=== PATIENT | female | born 1950 | race Caucasian/White ===

== ENCOUNTER 2025-03-28 13:34 | Outpatient (AMB) | payer MEDICARE, OTHER, SELFPAY ==
--- NOTE | 2025-03-28 14:24 | MHC.OFFVIS ---
Intake Visit Reasons: R/S 6m Allergies No Known Allergies Allergy (Verified 01/01/25 06:41) HPI Comments Details: 75 years old woman with dementia probably of dementia with Lewy body type. She is presenting with hallucinations. Vision-based hallucinations occur intermittently, described variably as non-threatening and occasionally intimidating. She also reports auditory hallucinations. These symptoms correlate with long-standing use of Quetiapine, administered primarily at night or additionally if symptoms manifest during the day. Parkinson's symptoms are managed with a prescribed regimen of carbidopa/levodopa (3 doses/day) and a nighttime dosage of carbidopa/levodopa extended-release. Concerns about overdose with this medication were allayed during the discussion. The discussion also included Alzheimer's Disease management with Memantine 5mg twice daily. The patient?s weight has decreased gradually over eighteen months, with no sudden recent weight loss noted. 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 - Psychological: Reports normal mood; denies current distress from hallucinations. - General: Reports gradual weight loss over the past year and a half. Physical Exam Neuro Other: Mental Status: Alert and oriented to person, place, and time. Normal attention. Normal spontaneous speech, fluency, and comprehension. Cranial Nerves: CN II: Visual loera full to confrontation, visual acuity intact. CN III, IV, : Pupils equal, round, reactive to light and accommodation. Extraocular movements are normal. CN V: Facial sensation is normal. CN VII: Facial movements symmetrical. CN VIII: Hearing intact to bedside conversation is normal. CN IX, X: Palate elevates symmetrically. CN XI: Shoulder shrug and head turn symmetrical. CN XII: Tongue midline without atrophy or fasciculations. Extrapyramidal: Full facial expressions and blinking. No rigidity. Movements are appropriate with no tremor or abnormality. Speech: Normal; no dysarthria or tremor. Assessment & Plan Assessment & Plan (1) Dementia with Lewy bodies: Comment: Routine EEG at off in Jun 2023: SlowMRI brain WO at [place] in 2019: mild atrophy and mild MVD. Code(s): G31.83 - Neurocognitive disorder with Lewy bodies; F02.80 - Dementia in other diseases classified elsewhere, unspecified severity, without behavioral disturbance, psychotic disturbance, mood disturbance, and anxiety Category: Medical Qualifiers: Dementia severity: moderate Dementia behavioral or psychological symptom: with other behavioral disturbance Qualified Code(s): G31.83 - Neurocognitive disorder with Lewy bodies; F02.B18 - Dementia in other diseases classified elsewhere, moderate, with other behavioral disturbance Plan Impression: Dementia, probably of Lewy body type, moderate with mild psychotic symptoms Rec: Carbidopa/levodopa 25/101 tablet 3 times a day Carbidopa/levodopa extended release 25/101 at bedtime Memantine 5 mg twice a day Quetiapine 25 mg 1 at bedtime or in afternoon. An additional 1 can be taken if needed. Medications: New quetiapine 25 mg PO BEDTIME 90 tabs 1RF Refilled carbidopa-levodopa 25-100 mg 1 tab PO TID 270 tabs 1RF carbidopa-levodopa 25-100 mg ER 1 tab PO BEDTIME 90 tabs 1RF memantine 5 mg PO BID 180 tabs 1RF Coding Level of Care Code Est Pt Level 4 (35673) Diagnoses Moderate Lewy body dementia with other behavioral disturbance G31.83; F02.B18 Dementia severity: moderate Dementia behavioral or psychological symptom: with other behavioral disturbance
--- OUTSIDE RECORDS SUMMARY | 2025-03-28 17:15 | XMS_ITS | Encounter Summary ---
Author Organization [facility] Address [address] [place] [address] Care Team Providers Care Quality And Reliability Engineer Name Role Phone Balbir Hernandez MD Primary Care Provider [phone] Encounter Details Date Type Department Care Team Description 02/02/2022 Business Doc Medical Records [address] [place] [id number] Abstract, Provider Social History Tobacco Use Types Packs/Day Years Used Date Smoking Tobacco: Former Cigarettes 0.5 15 Q uit: 06/06/1986 Smokeless Tobacco: Never Comments:quit 1986 Alcohol Use Standard Drinks/Week Comments Yes 0 (1 standard drink = 0.6 oz pur e alcohol) 6 drinks per wk Sex Assigned at Date Recorded Not on file Job Start Date Occupation Industry Not on file Not on file Not on file COVID-19 Exposure Response Date Recorded In the last 10 days, have yo u been in contact with someone who was confirmed or suspected to have Coronavirus/COVID-19? No / Unsure 01/29/2022 2:47 PM EDT documented as of this encounter Plan of Treatment Not on file documented as of this encounter Visit Diagnoses Not on filedocumented in this encounter Care Teams Quality And Reliability Engineer Relationship Specialty Start Date End Date Balbir Hernandez MD [address] [place] [address] PCP - General 10/07/06 documented as of this encounter
--- OUTSIDE RECORDS SUMMARY | 2025-03-28 17:15 | XMS_ITS | Encounter Summary ---
Author Organization [facility] [facility] Address [address] [place] [address] Care Team Providers Care Junior Underwriter Name Role Phone Balbir Hernandez MD Primary Care Provider [phone] Encounter Details Date Type Department Care Team Description 08/11/2023 Orders Only Medical Records [address] [place] [address] Kristin Mcintyre MD Social History Tobacco Use Types Packs/Day Years Used Date Smoking Tobacco: Former Cigarettes 0.5 15 Q uit: 06/06/1986 Smokeless Tobacco: Never Comments:quit 1986 Alcohol Use Standard Drinks/Week Comments Yes 0 (1 standard drink = 0.6 oz pur e alcohol) rarely Sex Assigned at Date Recorded Not on file Job Start Date Occupation Industry Not on file Not on file Not on file documented as of this encounter Plan of Treatment Not on file documented as of this encounter Procedures Procedure Name Priority Date/Time Associated Diagnosis Comments OUTSIDE PLAIN FILM Routine 07/13/2023 OUTSIDE LAB Routine 07/13/2023 documented in this encounter Results * OUTSIDE PLAIN FILM (07/13/2023) Kristin Mcintyre MD RADIOLOGY * OUTSIDE LAB (07/13/2023) [facility] documented in this encounter Visit Diagnoses Not on filedocumented in this encounter Care Teams Junior Underwriter Relationship Specialty Start Date End Date Balbir Hernandez MD [address] [place] [address] PCP - General 10/07/06 documented as of this encounter
--- OUTSIDE RECORDS SUMMARY | 2025-03-28 17:15 | XMS_ITS | Clinical Summary ---
Author Organization [facility] Address [address] [place] [address] Care Team Providers Care Lens Cleaner Name Role Phone Pcp, No Primary Care Provider [phone] Social History Tobacco Use Types Packs/Day Years Used Date Smoking Tobacco: Never Assessed Comments Unknown Sex and Gender Information Value Date Recorded Sex Assigned at Not on file Legal Sex Female 1:29 PM EDT Gender Identity Not on file Sexual Orientation Not on file Plan of Treatment Health Maintenance Due Date Last Done Comments Colorectal Cancer: COLONOSCO PY Screening every 10 yrs (or Modifier) 1950 Depression: Screening Annual ly using PHQ-2/9 in Adults 18 yrs or above (or HM Modifier)([facility]) 1969 Hepatitis C Virus Infection in Adolescents and Adults: Screening (or Modifier) ([facility]) 1969 SDIN Screening Reminder: Virgen kitchen for all adults ([facility]) 1969 Tobacco Smoking Cessation: i n Adults excluding Women: Behavioral and Pharmacotherapy Interventions ([facility]) 1969 Colorectal Cancer Screening 45 -75 Yrs (or HM Modifier) 02/23/1996 Colorectal Cancer: FLEXIBLE SIGMOIDOSCOPY Screening every 5 yrs 02/23/1996 Colorectal Cancer: Fecal Immunochemical Test (FIT) Annually [facility] 02/23/1996 Colorectal Cancer: High-sens itivity gFOBT Screening Annually [facility] 02/23/1996 Colorectal Cancer: Stool Col oguard Screening every 3 yrs 02/23/1996 Colorectal Cancer:CT Colonog theodora Screening every 5 yrs 02/23/1996 Breast Cancer: Screening Virgen fidelina age 50-74 yrs (or HM Modifier)([facility]) 2001 Zoster/Shingles Vaccine Seri es Screening: Adults aged 18+ yrs (or HM Modifiers)([facility]) (1 of 2) 2001 Osteoporosis Screening to Pr event Fractures: Women aged 65 years+ ([facility]) 02/23/2016 Pneumococcal Vaccination Scr eening: Patients 50+ yrs of age ([facility]) (2 of 2 - PCV) 10/28/2017 10/28/2016 DTaP/Tdap/Td Vaccines ([facility]) (2 - Td or Tdap) 07/28/2022 07/28/2012 Flu Vaccination: Ages 65+: Y early High Dose Recommended (or Modifier)([facility]) 01/04/2025 06/21/2018 COVID-19 Vaccine Screening: Initial Series and Booster Status ([facility]) ( season) 2025 06/22/2021, 09/19/2020, 08/22/2020 RSV Vaccines (1 - 1-dose 75+ series) 2026 Medical Devices Not on file Care Teams Lens Cleaner Relationship Specialty Start Date End Date Pcp, No PCP - General Family Medicine 03/11/23
--- OUTSIDE RECORDS SUMMARY | 2025-03-28 17:15 | XMS_ITS ---
Author Name [facility] Organization Unknown Care Team Organization Name Specialty Phone Email Start Date End Da [facility] 01/23/2025 [facility]se [facility] 02/10/2023
--- OUTSIDE RECORDS SUMMARY | 2025-03-28 17:15 | XMS_ITS | Clinical Summary ---
Author Organization [facility] Address [address] [place] [address] Care Team Providers Care Residential Energy Auditor Name Role Phone Balbir Hernandez MD Primary Care Provider [phone] Allergies Active Allergy Reactions Severity Noted Date Comments Seasonal Allergies 11/03/2010 Medications Medication Sig Dispensed Refills Start Date End Date Status ALBUTEROL SULFATE 108 (90 Base) MCG/ACT Aero Soln Inhale 2 Puffs into the lungs every 4 hours as needed for Wheezing or Shortness of Breath (EMERGENCY USE ONLY). 8.5 g 0 08/25/2022 Active carbidopa-levodopa (SINEMET) 25-100 MG per tablet Take 1 Tablet by mouth 4 times daily. 0 Active alendronate (FOSAMAX) 70 MG tablet Take 1 Tablet by mouth every 7 days. 12 Tablet 1 09/02/2022 Active quetiapine (SEROQUEL) 25 MG tablet Take 1 Tablet by mouth daily. 0 Active Active Problems Problem Noted Date Parkinson's disease 09/02/2022 COVID-19 06/24/2020 Vitamin D deficiency 11/21/2018 Osteoporosis 05/03/2017 Allergic rhinitis 07/25/2016 Asthma 06/24/2011 Resolved Problems Problem Noted Date Resolved Date Encounter for screening colonoscopy 08/18/2022 Immunizations Name Administration Dates Next Due COVID-19 (Moderna) 06/22/2021,09/19/2020, 021 Influenza Vaccine-preservati ve Free-quadrivalent 4 Years 06/21/2018 Influenza Vaccine-quadrivalent 4 Years Plus 04/07 Influenza vaccine high dose age 65 and over 06/06 Pneumoccoccal(Adult) Polysaccharide PPSV23 10/28 Pneumococcal Conjugate PCV-13 06/21/2018 TD (STATE SUPPLIED FOR ADULTS AND CHILDREN) 08/06 Tdap 07/28/2012 Family History Medical History Relation Name Comments Dementia Father CA Breast Other m aunt hyperthyroid Sister Relation Name Status Comments Father Other m aunt Sister Social History Tobacco Use Types Packs/Day Years Used Date Smoking Tobacco: Former Cigarettes 0.5 15 Q uit: 06/06/1986 Smokeless Tobacco: Never Tobacco Cessation:Counseling Given: Not Answered Comments:quit 1986 Alcohol Use Standard Drinks/Week Comments Yes 0 (1 standard drink = 0.6 oz pur e alcohol) rarely Sex Assigned at Date Recorded Not on file Job Start Date Occupation Industry Not on file Not on file Not on file Last Filed Vital Signs Vital Sign Reading Time Taken Comments Blood Pressure 118/60 12/09/2023 10:46 AM EDT Pulse 72 12/09/2023 10:46 AM EDT Temperature 36.5 C (97.7 F) 12/09/2023 10:46 AM EDT Respiratory Rate 12 12/09/2023 10:46 AM EDT Oxygen Saturation 99% 02/16/2022 1:55 PM EDT Inhaled Oxygen Concentration - - Weight 50 kg (110 lb 3.2 oz) 12/09/2023 10:46 AM EDT Height 160 cm (5' 3 ) 12/09/2023 10:46 AM EDT Body Mass Index 19.52 12/09/2023 10:46 AM EDT Plan of Treatment Health Maintenance Due Date Last Done Comments SHINGLES VACCINE (1 of 2) 2001 COLON CANCER SCREENING 09/27/2021 09/28/2011, 2011 FALL RISK ASSESSMENT 09/03/2023 09/02/2022, 08/31/2021, 07/26/2019, Additional history exists BONE DENSITY SCREENING 06/24/2024 , 01/02/2019, 11/22/2016, Additional history exists DEPRESSION SCREEN 12/08/2024 12/09/2023, , 08/31/2021, Additional history exists MAMMOGRAM 01/26/2025 01/27/2024, 01/04, 01/29/2022, Additional history exists Covid-19 Vaccine (4 - 2022-2 4 season) 2025 06/22/2021, 09/19/2020, 08/22/2020 INFLUENZA (#1) 2025 06/22/2021, 06/06, 05/03/2017 CHOLESTEROL SCREENING 12/08/2028 12/09/2023 , 09/07/2021, 11/20/2018, Additional history exists DTAP/TDAP/TD (3 - Td or Tdap) 09/02/2032 09/02/2022, 07/28/2012 HEPATITIS C SCREENING Completed 10/28/2016 PNEUMOCOCCAL VACCINE Completed 06/21/2018, 10/29/19 Care Teams Residential Energy Auditor Relationship Specialty Start Date End Date Balbir Hernandez MD [address] [place] [address] PCP - General 10/07/06
--- OUTSIDE RECORDS SUMMARY | 2025-03-28 17:15 | XMS_ITS | Encounter Summary ---
Author Organization [facility] Address [address] [place] [address] Care Team Providers Care Landscape Architecture Teacher Name Role Phone Balbir Hernandez MD Primary Care Provider [phone] Encounter Details Date Type Department Care Team Description 01/21/2023 Business Doc Medical Records [address] [place] [id number] Abstract, Provider Social History Tobacco Use Types [...] suspected to have Coronavirus/COVID-19? No / Unsure 01/19/2023 2:58 PM EDT documented as of this encounter Plan of Treatment Not on file documented as of this encounter Visit Diagnoses Not on filedocumented in this encounter Care Teams Landscape Architecture Teacher Relationship Specialty Start Date End Date Balbir Hernandez MD [address] [place] [address] PCP - General 10/07/06 documented as of this encounter
--- OUTSIDE RECORDS SUMMARY | 2025-03-28 17:15 | XMS_ITS | Encounter Summary ---
Author Organization [facility] Address [address] [place] [address] Care Team Providers Care Spiritual Counselor Name Role Phone Balbir Hernandez MD Primary Care Provider [phone] Encounter Details Date Type Department Care Team Description 07/13/2023 Hospital Medical Records [address] [place], [place] [id number] [place] [address] [address] [place], [place] [id number] Social History Tobacco Use Types Packs/Day Years [...] on filedocumented in this encounter Care Teams Spiritual Counselor Relationship Specialty Start Date End Date Balbir Hernandez MD [address] [place], [place] [phone] PCP - General 10/07/06 documented as of this encounter
--- OUTSIDE RECORDS SUMMARY | 2025-03-28 17:15 | XMS_ITS | Encounter Summary ---
Author Organization [facility] Address [address] [place] [address] Care Team Providers Care Stamping Operator Name Role Phone Balbir Hernandez MD Primary Care Provider [phone] Encounter Details Date Type Department Care Team Description 11/23/2016 Business Doc Medical Records [address] [place] [address] Abstract, Provider Social History Tobacco Use Types [...] on filedocumented in this encounter Care Teams Stamping Operator Relationship Specialty Start Date End Date Balbir Hernandez MD [address] [place] [address] [phone] PCP - General 10/07/06 documented as of this encounter
--- OUTSIDE RECORDS SUMMARY | 2025-03-28 17:15 | XMS_ITS | Encounter Summary ---
Author Organization [facility] Address [address] [place] [address] Care Team Providers Care Parts Sales Advisor Name Role Phone Balbir Hernandez MD Primary Care Provider [phone] Encounter Details Date Type Department Care Team Description 01/10/2019 Orders Only Adult Medicine [address] [phone] Magdalene Larios PA Social History Tobacco Use Types Packs/Day Years [...] on filedocumented in this encounter Care Teams Parts Sales Advisor Relationship Specialty Start Date End Date Balbir Hernandez MD [address] [place] [address] PCP - General 10/07/06 documented as of this encounter
--- OUTSIDE RECORDS SUMMARY | 2025-03-28 17:15 | XMS_ITS | Encounter Summary ---
Author Organization [facility] Address [address] [place] [address] Care Team Providers Care Fertilizer Loader Name Role Phone Balbir Hernandez MD Primary Care Provider [phone] Encounter Details Date Type Department Care Team Description 03/23/2017 Wellness Visit Medical Records [address] [place] [address] Balbir Hernandez MD [address] [place] [address] Social History Tobacco Use Types Packs/Day Years [...] on filedocumented in this encounter Care Teams Fertilizer Loader Relationship Specialty Start Date End Date Balbir Hernandez MD [address] [place] [address] PCP - General 10/07/06 documented as of this encounter
--- OUTSIDE RECORDS SUMMARY | 2025-03-28 17:15 | XMS_ITS | Encounter Summary ---
Author Organization [facility] Address [address] [place] [address] Care Team Providers Care Diesel Mechanic Apprentice Name Role Phone Balbir Hernandez MD Primary Care Provider [phone] Encounter Details Date Type Department Care Team Description 11/02/2016 Business Doc Medical Records [address] [place] [address] Abstract, Provider Social History Tobacco Use Types [...] on filedocumented in this encounter Care Teams Diesel Mechanic Apprentice Relationship Specialty Start Date End Date Balbir Hernandez MD [address] [place] [address] [phone] PCP - General 10/07/06 documented as of this encounter
--- OUTSIDE RECORDS SUMMARY | 2025-03-28 17:15 | XMS_ITS | Encounter Summary ---
Author Organization [facility] Address [address] [place] [address] Care Team Providers Care Diamond Powder Mixer Name Role Phone Balbir Hernandez MD Primary Care Provider [phone] Encounter Details Date Type Department Care Team Description 06/21/2022 Orders Only Radiology - [address] [address] Radiology, Authorizing Social History Tobacco Use Types Packs/Day Years [...] suspected to have Coronavirus/COVID-19? No / Unsure 06/24/2022 2:44 PM EST documented as of this encounter Plan of Treatment Not on file documented as of this encounter Visit Diagnoses Not on filedocumented in this encounter Care Teams Diamond Powder Mixer Relationship Specialty Start Date End Date Balbir Hernandez MD [address] [place] [address] PCP - General 10/07/06 documented as of this encounter
--- OUTSIDE RECORDS SUMMARY | 2025-03-28 17:15 | XMS_ITS | Encounter Summary ---
Author Organization [facility] Address [address] [place] [address] Care Team Providers Care Pin Setter Name Role Phone Balbir Hernandez MD Primary Care Provider [phone] Encounter Details Date Type Department Care Team Description 12/01/2017 Business Doc Medical Records [address] [place] [address] Abstract, Provider Social History Tobacco Use Types [...] on filedocumented in this encounter Care Teams Pin Setter Relationship Specialty Start Date End Date Balbir Hernandez MD [address] [place] [address] [phone] PCP - General 10/07/06 documented as of this encounter
--- OUTSIDE RECORDS SUMMARY | 2025-03-28 17:15 | XMS_ITS | Encounter Summary ---
Author Organization [facility] Address [address] [place] [address] Care Team Providers Care Audit Clerk Name Role Phone Balbir Hernandez MD Primary Care Provider [phone] Encounter Details Date Type Department Care Team Description 11/03/2021 Ship'S Officer Report Medical Records [address] [place] [address] Yessica Og MD Social History Tobacco Use Types Packs/Day [...] suspected to have Coronavirus/COVID-19? No / Unsure 11/03/2021 2:54 PM EDT documented as of this encounter Plan of Treatment Not on file documented as of this encounter Visit Diagnoses Not on filedocumented in this encounter Care Teams Audit Clerk Relationship Specialty Start Date End Date Balbir Hernandez MD [address] [place] [address] PCP - General 10/07/06 documented as of this encounter
--- OUTSIDE RECORDS SUMMARY | 2025-03-28 17:15 | XMS_ITS | Encounter Summary ---
Author Organization [facility] Address [address] [place] [address] Care Team Providers Care Rivet Hole Puncher Name Role Phone Balbir Hernandez MD Primary Care Provider [phone] Encounter Details Date Type Department Care Team Description 10/03/2017 Table Inspector Report Medical Records [address] [place] [address] Srikanth Bocanegra MD Social History Tobacco Use Types Packs/Day Years Used Date Smoking Tobacco: Former Cigarettes 0.5 15 Q uit: 06/06/1986 Smokeless Tobacco: Former Comments:quit 1986 Alcohol Use Standard Drinks/Week Comments [...] on filedocumented in this encounter Care Teams Rivet Hole Puncher Relationship Specialty Start Date End Date Balbir Hernandez MD [address] [place] [address] [phone] PCP - General 10/07/06 documented as of this encounter
--- OUTSIDE RECORDS SUMMARY | 2025-03-28 17:15 | XMS_ITS | Encounter Summary ---
Author Organization [facility] Address [address] [place] [address] Care Team Providers Care Media Buyer Name Role Phone Balbir Hernandez MD Primary Care Provider [phone] Reason for Visit * Reason Onset Date Comments Annual Wellness Outreach 10/28/2023 Encounter Details Date Type Department Care Team Description 10/28/2023 Telephone Adult Medicine [address] [phone] Balbir Hernandez MD [address] [place] [address] [phone] Annual Wellness Outreach Social History Tobacco Use Types Packs/Day Years [...] on filedocumented in this encounter Care Teams Media Buyer Relationship Specialty Start Date End Date Balbir Hernandez MD [address] [place] [address] PCP - General 10/07/06 documented as of this encounter
--- OUTSIDE RECORDS SUMMARY | 2025-03-28 17:15 | XMS_ITS | Encounter Summary ---
Author Organization [facility] Address [address] [place] [address] Care Team Providers Care Master Printer Name Role Phone Balbir Hernandez MD Primary Care Provider [phone] Encounter Details Date Type Department Care Team Description 01/04/2019 Business Doc Medical Records [address] [place] [address] Abstract, Provider Social History Tobacco Use Types [...] on filedocumented in this encounter Care Teams Master Printer Relationship Specialty Start Date End Date Balbir Hernandez MD [address] [place] [address] [phone] PCP - General 10/07/06 documented as of this encounter
--- OUTSIDE RECORDS SUMMARY | 2025-03-28 17:15 | XMS_ITS | Encounter Summary ---
Author Organization [facility] Address [address] [place] [address] Care Team Providers Care Courier Name Role Phone Balbir Hernandez MD Primary Care Provider [phone] Encounter Details Date Type Department Care Team Description 10/29/2016 Business Doc Medical Records [address] [place] [address] Abstract, Provider Social History Tobacco Use Types [...] on filedocumented in this encounter Care Teams Courier Relationship Specialty Start Date End Date Balbir Hernandez MD [address] [place] [address] [phone] PCP - General 10/07/06 documented as of this encounter
--- OUTSIDE RECORDS SUMMARY | 2025-03-28 17:15 | XMS_ITS | Clinical Summary ---
Author Organization [facility] [address] [place] [address] [place] [phone] Phone Care Team Providers Care Youth Court Judge Name Role Phone Balbir Hernandez MD Primary Care Provider [phone] Allergies Active Allergy Reactions Criticality Noted Date Comments Levonorgestrel-Ethinyl Estrad 2010 SEASONAL ALLERGIES Medications albuterol HFA (PROAIR HFA ; PROVENTIL HFA ; VENTOLIN HFA) 90 mcg/actuation inhaler Inhale 2 Puffs into the lungs every 4 hours as needed for Wheezing or Shortness of Breath (EMERGENCY USE ONLY). 3 Active alendronate (FOSAMAX) 70 mg tablet Take 1 Tablet by mouth every 7 days. 3 Active carbidopa-levod opa (SINEMET) 25-100 mg per tablet Take 1 Tablet by mouth 4 times daily. Active QUEtiapine (SEROquel) 25 mg tablet Active memantine (NAMENDA) 5 mg tablet Take 1 tablet (5 mg total) by mouth 2 (two) times a day. 4 Active cholecalciferol (VITAMIN D-3) 50 mcg (2,000 unit) tablet Take 1 tablet (2,000 Units total) by mouth 1 (one) time each day. 90 tablet 1 5 Active Active Problems Problem Noted Date Diagnosed Date A-fib (CMS/[facility] V24, CMS/[facility] V28) 10/23/2024 Parkinson's disease (CMS/[facility] V24, CMS/[facility] V28) 0 09/02/2022 COVID-19 06/24/2020 Vitamin D deficiency 11/21/2018 Osteoporosis 05/03/2017 Allergic rhinitis 07/25/2016 Asthma 06/24/2011 Encounters Date Type Department Care Team Description 01/31/2025 11:30 AM EDT Ancillary Procedure [facility] - [address] [place] [phone] New onset a-fib (CMS/HCC V24, CMS/HCC V28) 01/23/2025 3:00 PM EDT Office Visit Adult Medicine [address] [phone] Noe Webster PA Impacted cerumen of left ear (Primary Dx) 01/23/2025 Telephone Adult Medicine [address] [phone] Balbir Hernandez MD 01/23/2025 Telephone Adult Medicine [address] [phone] Balbir Hernandez MD from Last 3 Months Immunizations Immunization Administration Dates Next Due Influenza Quadravalent, MDCK , 0.5ml, preservative free (Flucelvax) 6mo and older 06/21/2018 Influenza Quadravalent, MDCK , 0.5ml, with preservative (Flucelvax) 6mo and older 05/03/2017 Influenza trivalent, 0.5mL (Fluad) 65yo and olde r 06/22/2021 Pneumococcal conjugate 13 va lent (Prevnar 13, PCV13) 2mo and older 06/21/2018 Pneumococcal polysaccharide 23 valent (Pneumovax 23) 2yo and older 10/28/2016 Td Tetanus diptheria (Tdvax) 7yo and older 09/02 Tdap Tetanus diptheria acell ular pertussis (Boostrix; Adacel) 7yo and older 07/28/2012 Surgical History Surgery Date Site/Laterality Comments SECTION PROCEDURE: HISTORICAL DELIVERY COLONOSCOPY 09/28/2011 PROCEDURE: [place] COLONOSCOPY FLX DX W/COLLJ SPEC WHEN PFRMD; COMMENT: normal COLONOSCOPY PROCEDURE: HISTORICAL COLONOSCOPY COLONOSCOPY PROCEDURE: HISTORICAL COLONOSCOPY; COMMENT: Performed in September 2011 Medical History Medical History Date Comments Asthma 06/24/2011 DX:Asthma Osteoporosis DX:Osteoporosis Family History Medical History Relation Name Comments Dementia Father Breast cancer Other m aunt Other: hyperthyroid Sister Relation Name Status Comments Father Other m aunt Sister Social History Tobacco Use Types Packs/Day Years Used Date Smoking Tobacco: Former Cigarettes Q uit: 06/06/1986 Smokeless Tobacco: Never Tobacco Cessation:Counseling Given: Not Answered Alcohol Use Standard Drinks/Week Comments Yes 0 (1 standard drink = 0.6 oz pur e alcohol) Comments Unknown Sex and Gender Information Value Date Recorded Sex Assigned at Not on file Legal Sex Female 3:18 AM EST Gender Identity Not on file Sexual Orientation Not on file Obstetrics History Last Filed Vital Signs Vital Sign Reading Time Taken Comments Blood Pressure 144/76 01/31/2025 1:40 PM EDT Pulse 64 01/23/2025 2:48 PM EDT Temperature 36.3 C (97.4 F) 09/13/2024 3:52 PM EDT Respiratory Rate 12 01/23/2025 2:48 PM EDT Oxygen Saturation 98% 10/25/2024 11:23 AM EDT Inhaled Oxygen Concentration - - Weight 42.6 kg (94 lb) 01/31/2025 1:40 PM EDT Height 160 cm (5' 3 ) 01/31/2025 1:40 PM EDT Body Mass Index 16.65 01/31/2025 1:40 PM EDT Plan of Treatment Upcoming Encounters Date Type Department Care Team (Late st Contact Info) Description 05/22/2025 10:40 AM EST Office Visit [facility] [address] [place] [phone] Magdalene Mao NP [address] [place] [address] Health Maintenance Due Date Last Done Comments RSV Immunization Adult Patients (1 - Risk 50-74 years 1-dose series) 2001 Colorectal Cancer Screening: Colonoscopy 09/27/2021 09/28/2011 Falls Risk Assessment 05/15/2022 Medicare Annual Wellness Visit 05/15/2022 Social Influencers of Health Screening 05/15/2022 Depression Screening 06/06/2024 12/09/2023 COVID-19 Vaccine ( season) 2025 06/22/2021, 09/19/2020, 08/22/2020 Influenza Vaccine (#1) 2025 2, 06/21/2018, 05/03/2017 Breast Cancer Screening 01/26/2026 01/27/20 24, 01/27/2024, 01/19/2023, Additional history exists Cholesterol Screening (Lipid Panel) 12/08/2028 12/09/2023, 12/09/2023 DTaP,Tdap,and Td Vaccines (3 - Td or Tdap) 09/02/2032 09/02/2022, 07/28/2012 Osteoporosis Screening (Bone Density Screening) 06/29/2034 06/29/2024, 06/24/2022, 01/02/2019, Additional history exists Hepatitis C Screening Completed 10/28/2016 Pneumococcal Vaccine: 50+ Years Completed 06/21/2018, 10/28/2016 Zoster Vaccines Completed 03/11/2023, 12/09/2022 HIB Vaccines Aged Out No longer eligi ble based on patient's age to complete this topic HPV Vaccines Aged Out No longer eligi ble based on patient's age to complete this topic Hepatitis A Vaccines Aged Out No long er eligible based on patient's age to complete this topic Hepatitis B Vaccines Aged Out No long er eligible based on patient's age to complete this topic IPV Vaccines Aged Out No longer eligi ble based on patient's age to complete this topic MMR Vaccines Aged Out No longer eligi ble based on patient's age to complete this topic Meningococcal ACWY Vaccine Aged Out N o longer eligible based on patient's age to complete this topic Meningococcal B Vaccine Aged Out No l onger eligible based on patient's age to complete this topic RSV Immunization Patients Under 20 months Aged Out No longer eligible based on patient's age to complete this topic Varicella Vaccines Aged Out No longer eligible based on patient's age to complete this topic Procedures Procedure Name Priority Date/Time Associated Diagnosis Comments TRANSTHORACIC ECHOCARDIOGRAM (TTE) COMPLETE Routine 01/31/2025 12:10 PM EDT New onset a-fib ([facility] V24, [facility] V28) BD BONE DENSITY DXA AXIAL SKELETON Routine 06/29/2024 1:42 PM EST Osteoporosis, unspecified osteoporosis type, unspecified pathological fracture presence SCREENING MAMMOGRAPHY BI 2-VIEW BREAST INC CAD Routine 01/27/2024 2:20 PM EDT Encounter for screening mammogram for malignant neoplasm of breast HM DEPRESSION SCREENING Routine 12/09/2023 LIPID PANEL Routine 12/09/2023 HM HEPATITIS C SCREENING Routine 10/28/2016 HM COLONOSCOPY Routine 09/28/2011 from Last 3 Months or Most Recently Relevant to Health Maintenance Results * (ABNORMAL) TRANSTHORACIC ECHOCARDIOGRAM (TTE) COMPLETE (01/31/2025 12:10 PM EDT) Left Atrium Minor [place] 4.2 cm CV PACS Left Atrium Major [place] 4.1 cm CV PACS LA Area Sys (A2C) 9 cm2 CV PACS LA Area Sys (A4C) 12 cm2 CV PACS LA Volume (BP) 21 mL CV PACS LA Size 3.4 cm CV PACS RA Area 8.6 cm2 CV PACS RA 2D Volume 16 mL CV PACS AV Regurgitation PHT 865 ms CV PACS AR Max Velocity 2.5 m/s CV PACS AV Regurgitant Volume 26 mmHg CV PACS AV Peak Lan 1.2 m/s CV PACS AV Peak Gradient 5 mmHg CV PACS AV Mean Gradient 2 mmHg CV PACS AV Mean Gradient 2 mmHg CV PACS Ao VTI 24.5 cm CV PACS AV Area Continuity Equation 1.7 cm2 CV PACS AV Area Peak Velocity 2.0 cm2 CV PACS Aortic Arch 2.4 cm CV PACS Ascending Aorta 2.8 cm CV PACS Aortic Sinus Valsalva 3.5 cm CV PACS IVC Proximal 1.6 cm CV PACS IVSD 0.9 0.6 - 0.9 cm CV PACS LVIDD 3.9 3.8 - 5.2 cm CV PACS LVIDS 2.6 2.2 - 3.5 cm CV PACS LVOT Diameter 1.8 cm CV PACS LVOT Mean Lan 0.5 m/s CV PACS LVOT Mean Grad 1 mmHg CV PACS LVOT Mean Grad 1 mmHg CV PACS LVOT Peak VTI 16.5 cm CV PACS LVOT Peak Lan 0.9 m/s CV PACS LVOT Peak Gradient 3 mmHg CV PACS LVPWD 0.9 0.6 - 0.9 cm CV PACS MV E' Tissue Velocity Lateral 9 cm/s CV PACS MV E' Tissue Velocity Septal 8 cm/s CV PACS LVOT Area 2.5 cm2 CV PACS LVOT Stroke Volume 42 mL CV PACS MV Deceleration Mason 3.8 m/s2 CV PACS E Wave Deceleration Time 227 119 - 242 ms CV PACS MV PHT 69 ms CV PACS MV Peak A Lan 1.02 m/s CV PACS MV Peak E Lan 0.85 m/s CV PACS MV Mean Gradient 2 mmHg CV PACS MV Mean Gradient 2 mmHg CV PACS MV VTI 34.9 cm CV PACS Mitral Valve Max Velocity 1.1 m/s CV PACS MV Peak Gradient 5 mmHg CV PACS MV Area PHT 3.2 cm2 CV PACS MV Area Continuity Equation 1.2 cm2 CV PACS PV Acceleration Time 148 ms CV PACS PV Acceleration Time 165 ms CV PACS PV Acceleration Time 157 ms CV PACS PV Mean Gradient 2 mmHg CV PACS PV VTI 18.6 cm CV PACS PV Peak Velocity 1.0 m/s CV PACS PV Peak Gradient 4 mmHg CV PACS RV Diastolic Basal Dimension 3.0 2.5 - 4.1 cm CV PACS RV S' 12 cm/s CV PACS TAPSE 18 mm CV PACS TR Peak Velocity 2.31 m/s CV PACS TR Peak Velocity 2.31 m/s CV PACS TR Peak Gradient 21 mmHg CV PACS E/E' Ratio Septal 11 CV PACS E/E' Ratio Averaged 10 CV PACS Relative Wall Thickness ratio 0.46 CV PACS LVOT:AV VTI Index 0.67 CV PACS FS 33 % CV PACS LV Mass 2D 105 g CV PACS MV VTI:LVOT VTI ratio 2.1 CV PACS LVOT flow 127 mL/s CV PACS AV Velocity Ratio 0.75 CV PACS E/A Ratio 0.8 CV PACS E/E' Ratio Lateral 9 CV PACS BSA 1.38 m2 CV PACS LA Volume Index (BP) 15 mL/m2 CV PACS LVIDD Index 2.79 cm/m2 CV PACS LVIDS Index 1.86 cm/m2 CV PACS LV Mass Index 2D 75 44 - 88 g/m2 CV PACS LVOT Stroke Index 30 mL/m2 CV PACS LA Dimension Index 2D 2.4 cm/m2 CV PACS RA 2D Volume Index 11(A) 15 - 27 mL/m2 CV PACS YORDY Index (VTI) 1.22 cm2/m2 CV PACS YORDY Index (Pk Lan) 1.43 cm2/m2 CV PACS Ascending Aorta Index 2.00 cm/m2 CV PACS Est. RA Pressure 3 mmHg CV PACS Anatomical Region Laterality Modality Ultrasound Narrative 02/07/2025 4:43 PM EDT Left ventricle cavity size is normal. Left ventricular systolic function is in the normal range with an ejection fraction of 60-65%. No regional LV wall motion abnormalities noted. Left ventricle wall thickness is normal. Right ventricle cavity is normal. Right ventricular systolic function is normal. No hemodynamically valve disease. Left Ventricle Left ventricle cavity size is normal. Wall thickness is normal. Systolic function is normal with an ejection fraction of 60-65%. There are no regional LV wall motion abnormalities. Indeterminate diastolic function. Right Ventricle Right ventricle cavity appears normal. Systolic function is normal. Left Atrium Left atrium cavity size is normal. Right Atrium Right atrium cavity is normal. IVC/SVC Inferior vena cava structure is normal. RA pressures is estimated to be 3 mmHg (IVC diameter <21 mm and decreases >50% during inspiration). Mitral Valve The leaflets are mildly thickened. There is mild annular calcification. There is trace regurgitation. There is no evidence of mitral valve stenosis. Tricuspid Valve Tricuspid valve structure is normal. There is no significant regurgitation. The right ventricular systolic pressure is normal. Aortic Valve The aortic valve is trileaflet. The leaflets are mildly thickened. There is trace regurgitation with a centrally directed jet. There is no evidence of aortic valve stenosis. Pulmonic Valve There is mild pulmonic valve regurgitation. There is no evidence of pulmonic valve stenosis. Ascending Aorta The aorta appears normal in size. Pericardium Pericardium appears normal. There is no pericardial effusion. Study Details Overall the study quality was adequate. us Raj Crystal MD CV ECHO PROCEDURES Final Result * BD Bone Density DXA Axial Skeleton (06/29/2024 1:42 PM EST) Anatomical Region Laterality Modality Wrist, Hip, L-spine Bone Densito metry 06/30/2024 11:3 6 AM EST Impressions 06/30/2024 11:37 AM EST Osteoporosis. Telerad JAZMIN ([id number]) -------- FINAL REPORT -------- Dictated By: Gisel Cassidy Dictated Date: 06/30/2024 11:36 ET Assigned Physician: Gisel Cassidy Reviewed and Electronically Signed By: Gisel Cassidy Signed Date: 06/30/2024 11:37 ET Workstation ID: [id number] Transcribed By: Self Edit Transcribed Date: 06/30/2024 11:36 ET Narrative 06/30/2024 11:37 AM EST History: Low estrogen state due to menopause. Parent hip fracture. On alendronate. Prior smoker. Comparison: No comparison imaging at this institution. Findings: Bone densitometry is performed utilizing dual energy x-ray absorptiometry (DXA) in the [employer] ProdigDataslide unit. The lumbar spine and proximal femora are evaluated in the AP projection. The FRAX questionaire was completed. The results indicate osteoporosis, with a lumbar spine T-score of -3.1. The Z score is -0.8, indicating bone mineral density within the range of normal for age. The detailed DEXA report will be mailed to the referring physician's office. DualFemur FRAX: 10-year Probability of Fracture: Major Osteoporotic 30.1 percent Hip 19.6 percent. Procedure Note Gisel Cassidy MD - 06/30/2024 History: Low estrogen state due to menopause. Parent hip fracture. Onalendronate. Prior smoker. Comparison: No comparison imaging at this institution. Findings: Bone densitometry is performed utilizing dual energy x-ray absorptiometry(DXA) in the [employer]lide unit. The lumbar spine and proximal femora areevaluated in the AP projection. The FRAX questionaire was completed. The results indicate osteoporosis, with a lumbar spine T-score of -3.1.The Z score is -0.8, indicating bone mineral density within the range ofnormal for age. The detailed DEXA report will be mailed to the referringphysician's office. DualFemur FRAX: 10-year Probability of Fracture: Major Osteoporotic 30.1percent Hip 19.6 percent. IMPRESSION: Osteoporosis. Telerad JAZMIN ([id number]) -------- FINAL REPORT -------- Dictated By: Gisel Cassidy Dictated Date: 06/30/2024 11:36 ET Assigned Physician: Gisel Cassidy Reviewed and Electronically Signed By: Gisel Cassidy Signed Date: 06/30/2024 11:37 ET Workstation ID: [id number] Transcribed By: Self Edit Transcribed Date: 06/30/2024 11:36 ET us Balbir Hernandez MD IMG DXA PROCEDURES Final Result * SCREENING MAMMOGRAPHY BI 2-VIEW BREAST INC CAD (01/27/2024 2:20 PM EDT) Anatomical Region Laterality Modality Radiographic Tamara ging 01/19/2023 3:18 PM EDT Narrative 01/30/2024 12:06 PM EDT This is a summary report. The complete report is available in the patient's medical record. If you cannot access the medical record, please contact the sending organization for a detailed fax or copy. BILATERAL 3D DIGITAL SCREENING MAMMOGRAM History: Routine screening. No current breast complaints. Family history of breast cancer Comparison: Multiple priors dating back to 01/07/2020 Technique: Bilateral full-field digital 3D mammography was performed using standard CC and MLO projections CAD was used to evaluate this mammogram. Findings: Density: The breasts are heterogeneously dense which may obscure small masses-C RIGHT: No suspicious masses, groups of microcalcification or areas of architectural distortion identified. Stable typically benign parenchymal asymmetries LEFT: No suspicious masses, groups of microcalcifications or areas of architectural distortion identified. Stable typically benign parenchymal asymmetries. Stable coarse calcifications at the inferior breast. IMPRESSION: : 1. No mammographic evidence of malignancy. BI-RADS Category 2 benign findings Recommendation: Routine annual screening mammography is recommended Procedure Note Carlos Munson MD - 03/21/2024 This is a summary report. The complete report is available in thepatient's medical record. If you cannot access the medical record, pleasecontact the sending organization for a detailed fax or copy. BILATERAL 3D DIGITAL SCREENING MAMMOGRAM History: Routine screening. No current breast complaints. Family historyof breast cancer Comparison: Multiple priors dating back to 01/07/2020 Technique: Bilateral full-field digital 3D mammography was performed usingstandard CC and MLO projections CAD was used to evaluate this mammogram. Findings: Density: The breasts are heterogeneously dense which may obscure smallmasses-C RIGHT: No suspicious masses, groups of microcalcification or areas ofarchitectural distortion identified. Stable typically benign parenchymalasymmetries LEFT: No suspicious masses, groups of microcalcifications or areas ofarchitectural distortion identified. Stable typically benign parenchymalasymmetries. Stable coarse calcifications at the inferior breast. IMPRESSION: : 1. No mammographic evidence of malignancy. BI-RADS Category 2 benign findings Recommendation: Routine annual screening mammography is recommended Result [facility] Magdalene WU IMG XR PROCEDURES Final Resul t * Depression Screening (12/09/2023) [facility] Depression Screening abstracted Result [facility] Provider HEALTH MAINTENANCE Final Result * (ABNORMAL) Lipid panel (12/09/2023) [facility] LDL/HDL Ratio 3 0 - 4 Triglycerides 163(A) 0 - 150 mg/dL Cholesterol 211(A) 0 - 200 mg/dL HDL 69 >=40 mg/dL LDL Cholesterol 110(A) 0 - 100 mg/dL Blood Venous blood specimen / Unknown Result [facility] Historical Provider LAB BLOOD ORDERABLES Lucy l Result * Hepatitis C Screening (10/28/2016) [facility] Hepatitis C Screening abstracted Result [facility] Provider HEALTH MAINTENANCE Final Result * Colonoscopy (09/28/2011) [facility] Colonoscopy no interpretation , abstracted Anatomical Region Laterality Modality Other us Historical Provider HEALTH MAINTENANCE Final Result from Last 3 Months or Most Recently Relevant to Health Maintenance Insurance MEDICARE [facility] Care Teams Youth Court Judge Relationship Specialty Start Date End Date Balbir Hernandez MD [address] [place] [phone] PCP - General 10/07/06
--- OUTSIDE RECORDS SUMMARY | 2025-03-28 17:15 | XMS_ITS | Encounter Summary ---
Author Organization [facility] Address [address] [place] [address] Care Team Providers Care Member Services Representative Name Role Phone Balbir Hernandez MD Primary Care Provider [phone] Encounter Details Date Type Department Care Team Description 09/27/2019 Associate Faculty Report Medical Records [address] [place] [address] Yessica Og MD Social History Tobacco Use [...] on filedocumented in this encounter Care Teams Member Services Representative Relationship Specialty Start Date End Date Balbir Hernandez MD [address] [place], [place] [phone] PCP - General 10/07/06 documented as of this encounter
--- OUTSIDE RECORDS SUMMARY | 2025-03-28 17:15 | XMS_ITS | Encounter Summary ---
Author Organization [facility] Address [address] [place] [address] Care Team Providers Care Administrative Director Name Role Phone Balbir Hernandez MD Primary Care Provider [phone] Reason for Visit * Reason Onset Date Comments Mychart Rx Refill 08/24/2022 Encounter Details Date Type Department Care Team Description 08/24/2022 Refill Adult Medicine [facility] [address] [place] [phone] Balbir Hernandez MD [address] [place] [phone] Mychart Rx Refill Social History Tobacco Use Types Packs/Day Years [...] on file documented as of this encounter Miscellaneous Notes * Telephone Encounter - Sinan Webster M.A. - 08/25/2022 9:54 AM EDT JAVI w/Johanne Walker 02/16/2022 JAVI w/PCP not on file Next OV w/PCP 09/02/2022 documented in this encounter Plan of Treatment Not on file documented as of this encounter Visit Diagnoses Not on filedocumented in this encounter Care Teams Administrative Director Relationship Specialty Start Date End Date Balbir Hernandez MD [address] [place] [phone] PCP - General 10/07/06 documented as of this encounter
== END 2025-03-28 14:34 | disposition home or self-care (01) ==
PROVIDERS: PCP Internal Medicine; Visit Provider Psychiatry & Neurology Neurology
DX: G31.83 Neurocognitive disorder with Lewy bodies (principal); F02.B18 Dementia in other diseases classified elsewhere, moderate, with other behavioral disturbance
CPT/HCPCS: 99214

== ENCOUNTER → 2025-03-28 13:34 | Outpatient (BNVA) | payer MEDICARE, OTHER, SELFPAY | PROVIDERS: PCP Internal Medicine; Visit Provider Psychiatry & Neurology Neurology | DX: G31.83 Neurocognitive disorder with Lewy bodies (principal); F02.B18 Dementia in other diseases classified elsewhere, moderate, with other behavioral disturbance | CPT/HCPCS: 99212 ==